=== PATIENT | male | born 1990 | race Two or more races ===

== ENCOUNTER 2024-09-15 10:37 | Emergency (ER) | payer MEDICAID ==
[~2024-09-15] VITALS: Ht 170.2 cm; Wt 110.0 kg
[2024-09-15 10:48] VITALS: TEMP 99
--- NOTE | 2024-09-15 11:20 | ED.PDOC ---
HPI Comments 33-year-old male presented to the [facility] complaining of extensive laceration to these left 4th finger he feels dated the ulnar side of his finger which is bleeding he does move his finger does have little sensation on the ulnar side Chief Complaint: Laceration Time Seen by MD: 10:54 Primary Care Provider: NONE Allergies: Coded Allergies: NO KNOWN ALLERGIES (Unverified , 01/17/15) Home Meds No Active Prescriptions or Reported Meds Mode of Arrival: Ambulatory Past Medical History PAST MEDICAL HISTORY: Denies Surgical History: Appendectomy, Denies all surgeries Family History Family History: Unknown Social History Smoker: Cigarettes Alcohol: Denies ETOH Use Drugs: Denies Drug Use Lives In: Home Constitutional: denies: chills, diaphoresis, fatigue, fever, malaise, sweats, weakness, others EENTM: denies: blurred vision, double vision, ear bleeding, ear discharge, ear drainage, ear pain, ear ringing, eye pain, eye redness, hearing loss, mouth pain, mouth swelling, nasal discharge, nose bleeding, nose congestion, nose pain, photophobia, tearing, throat pain, throat swelling, voice changes, others Respiratory: denies: cough, hemoptysis, orthopnea, SOB at rest, shortness of breath, SOB with excertion, stridor, wheezing, others Cardiovascular: denies: chest pain, dizzy spells, diaphoresis, Dyspnea on exertion, edema, irregular heart beat, left arm pain, lightheadedness, palpitations, PND, syncope, others Gastrointestinal: denies: abdomen distended, abdominal pain, blood streaked bowels, constipated, diarrhea, dysphagia, difficulty swallowing, hematemesis, melena, nausea, poor appetite, poor fluid intake, rectal bleeding, rectal pain, vomiting, others Genitourinary: denies: burning, dysuria, flank pain, frequency, hematuria, incontinence, penile discharge, penile sore, pain, testicle pain, testicle swelling, urgency, others Neurological: denies: dizziness, fainting, headache, left sided numbness, left sided weakness, numbness, paresthesia, pre-existing deficit, right sided numbness, right sided weakness, seizure, speech problems, tingling, tremors, weakness, others Musculoskeletal: denies: back pain, gout, joint pain, joint swelling, muscle pain, muscle stiffness, neck pain, others Integumetry: reports: laceration, others (Extensive laceration to his left 4th finger) Allergic/Immunocompromised: denies: Difficulty Healing, Frequent Infections, Hives, Itching, others Hematologic/Lymphatic: denies: anemia, blood clots, easy bleeding, easy bruising, swollen glands, others Endocrine: denies: excessive hunger, excessive sweating, excessive thirst, excessive urination, flushing, intolerance to cold, intolerance to heat, unexpl ained weight gain, unexplained weight loss, others Psychiatric: denies: anxiety, bipolar disorder, depression, hopeless, panic disorder, schizophrenia, sleepless, suicidal, others All Other Systems: Reviewed and Negative Physical Exam General Appearance: Mild Distress, Moderate Distress HEENT: Normal ENT Inspection, PERRL/EOMI Neck: Full Range of Motion, Non-Tender, Normal, Normal Inspection Respiratory: Chest Non-Tender, Lungs Clear, No Accessory Muscle Use, No Respiratory Distress, Normal Breath Sounds Cardiovascular: No Edema, No JVD, No Murmur, No Gallop, Normal Peripheral Pulses, Regular Rate/Rhythm Breast Exam: Deferred Gastrointestinal: No Organomegaly, Non Tender, No Pulsatile Mass, Normal Bowel Sounds, Soft Genitalia: Deferred Pelvic: Deferred Rectal: Deferred Extremities: Tender, Other (After hand 4th digit extensive laceration with profuse bleeding probably avulsion of the vascular system) Musculoskeletal : Location: Left Extremity Location: Finger 4, Hand Apperance: Limited ROM, Tenderness: Mild, Tenderness: Moderate, Other (Extended laceration 4th finger feel it) Neurologic: Alert, No Motor Deficits, Normal Affect, Normal Mood, Sensory Deficit Cerebellar Function: Normal Reflexes: Normal Skin: Dry, Lacerations, Warm, Other (Extensive bleeding deep wound probably involving the neurovascular system) Peripheral Pulses: 1+ carotid (R), 1+ carotid (L) Lymphatic: No Adenopathy Was a procedure done? Was a procedure done?: No Differential diagnosis Generic Laceration: Neurovascular Injury, Laceration, Avulsion X-Ray, Labs, Meds, VS Vital Signs Date Time Temp Pulse Resp B/P (MAP) Pulse Ox O2 Delivery O2 Flow Rate FiO2 09/15/24 10:48 99.0 90 16 154/95 (114) 99 99.0 X-Ray, Labs, Meds, VS Comment Course in the fast track patient has complex extensive laceration to his left 4th digit visit profusely bleeding and probably has a neurovascular injuries Patient will be referred back to the emergency department Departure 1 Departure Time of Disposition: 11:18 Impression: Primary Impression: Laceration of left hand with complication Qualified Codes: S61.412A - Laceration without foreign body of left hand, initial encounter Condition: Fair e-Prescriptions No Active Prescriptions or Reported Meds Critical Care Note Critical Care Time?: No Stability Stability form required: Yes Heart Score Heart Score: Heart Score Response (Comments) Value History N/A 0 EKG N/A 0 Age <45 0 Risk Factors No known risk factors 0 Troponin N/A 0 Total 0 I personally scribed for SHAN VELEZ MD ([email or web address]) on 09/15/24 at 11:32. Electronically submitted by Christen Sellers ([facility]). SHAN VELEZ MD Sep 15, 2024 11:20
[2024-09-15] MEDS: LIDOCAINE 1% (LOCAL ANESTH.) PF 5ml SDV ID ONE (11:48)
[2024-09-15 12:03] VITALS: PULSE 72; RESP 20; O2SAT 97
--- NOTE | 2024-09-15 12:05 | ED.PDOC ---
HPI Comments 33 y.o male presents to the ED for an evaluation of a left hand 3rd digit laceration. Patient reports cutting a hose with a wire knife and accidently slicing his finger. Patient presented with uncontrolled bleeding which was cleaned and wrapped in triage. Patient is able to move his hand and digit without any numbness or tingling sensation. No loss of sensation lost. Chief Complaint: Laceration Time Seen by MD: 12:00 Primary Care Provider: NONE Reviewed Notes: Nurses Notes, Medications, Allergies Allergies: Coded Allergies: NO KNOWN ALLERGIES (Unverified , 01/17/15) Home Meds Active Scripts Cephalexin (KEFLEX CAPSULE) 250 Mg Cp, 1 CAP PO QID, #28 CAP Prov:LUCILA MARTINEZ MD 09/15/24 Hydrocodone-Acetaminophen (Hydrocodone Bitartrate/AC 5-325 mg) 1 Tab Tab, 1 TAB PO Q8HP PRN for 7 Days, #21 TAB Prov:LUCILA MARTINEZ MD 09/15/24 Information Source: Patient Mode of Arrival: Ambulatory Severity: Moderate Severity of Laceration: Controlled Bleeding Complexity: Intermediate Timing: Hours Laceration Location: Digit #3 Mechanism: Knife Laceration Length (cm): 12 Depth of Injury: Skin Tender: Moderate Discharge: Bloody Associated Signs and Symptoms: Bleeding Past Medical History PAST MEDICAL HISTORY: Denies Surgical History: Appendectomy Family History Family History: Unknown Social History Smoker: Cigarettes Alcohol: Occasionally Drugs: Denies Drug Use Lives In: Home Constitutional: denies: chills, diaphoresis, fatigue, fever, malaise, sweats, weakness, others EENTM: denies: blurred vision, double vision, ear bleeding, ear discharge, ear drainage, ear pain, ear ringing, eye pain, eye redness, hearing loss, mouth pain, mouth swelling, nasal discharge, nose bleeding, nose congestion, nose pain, photophobia, tearing, throat pain, throat swelling, voice changes, others Respiratory: denies: cough, hemoptysis, orthopnea, SOB at rest, shortness of breath, SOB with excertion, stridor, wheezing, others Cardiovascular: denies: chest pain, dizzy spells, diaphoresis, Dyspnea on exertion, edema, irregular heart beat, left arm pain, lightheadedness, palpitations, PND, syncope, others Gastrointestinal: denies: abdomen distended, abdominal pain, blood streaked bowels, constipated, diarrhea, dysphagia, difficulty swallowing, hematemesis, melena, nausea, poor appetite, poor fluid intake, rectal bleeding, rectal pain, vomiting, others Genitourinary: denies: burning, dysuria, flank pain, frequency, hematuria, incontinence, penile discharge, penile sore, pain, testicle pain, testicle swelling, urgency, others Neurological: denies: dizziness, fainting, headache, left sided numbness, left sided weakness, numbness, paresthesia, pre-existing deficit, right sided numbness, right sided weakness, seizure, speech problems, tingling, tremors, weakness, others Musculoskeletal: denies: back pain, gout, joint pain, joint swelling, muscle pain, muscle stiffness, neck pain, others Integumetry: reports: laceration (left third digit ); denies: bruises, change in color, change in hair/nails, dryness, lesions, lumps, rash, wounds, others Allergic/Immunocompromised: denies: Difficulty Healing, Frequent Infections, Hives, Itching, others Hematologic/Lymphatic: denies: anemia, blood clots, easy bleeding, easy bruising, swollen glands, others Endocrine: denies: excessive hunger, excessive sweating, excessive thirst, excessive urination, flushing, intolerance to cold, intolerance to heat, unexplained weight gain, unexplained weight loss, others Psychiatric: denies: anxiety, bipolar disorder, depression, hopeless, panic disorder, schizophrenia, sleepless, suicidal, others All Other Systems: Reviewed and Negative Physical Exam General Appearance: Mild Distress HEENT: Normal ENT Inspection, Pharynx Normal, TMs Normal Neck: Full Range of Motion, Non-Tender, Normal, Normal Inspection Respiratory: Chest Non-Tender, Lungs Clear, No Accessory Muscle Use, No Respiratory Distress, Normal Breath Sounds Cardiovascular: No Edema, No JVD, No Murmur, No Gallop, Normal Peripheral Pulses, Regular Rate/Rhythm Breast Exam: Deferred Gastrointestinal: No Organomegaly, Non Tender, No Pulsatile Mass, Normal Bowel Sounds, Soft Genitalia: Deferred Pelvic: Deferred Rectal: Deferred Extremities: No calf tenderness, Normal capillary refill, Normal inspection, Normal range of motion, Non-tender, No pedal edema Musculoskeletal : Apperance: Normal Neurologic: Alert, paper colorer II-XII nml as Tested, No Motor Deficits, Normal Affect, Normal Mood, No Sensory Deficits Cerebellar Function: Normal Reflexes: Normal Skin: Dry, Lacerations (A total of 12 cm complex laceration to the 3rd digit with active bleeding), Normal Color, Warm Lymphatic: No Adenopathy Was a procedure done? Was a procedure done?: Yes Sedation Sedation?: No Laceration Repair : Location left hand, 3rd digit Length 12 cm Anesthetic: Lidocaine Laceration Repair Prep: Saline Laceration Repair Wound Comple: epidermis/dermis repair Laceration Repair: Number of sutures (30), Size (4-0 Ethilon), Nylon, Simple, Bacitracin, Non-adherent gauze Informed consent obtained: Yes Risks, benefits, and alternati: Yes Differential diagnosis Generic Laceration: Neurovascular Injury, Tendon Injury, Laceration, Avulsion X-Ray, Labs, Meds, VS Vital Signs Date Time Temp Pulse Resp B/P (MAP) Pulse Ox O2 Delivery O2 Flow Rate FiO2 09/15/24 12:03 72 20 97 Room Air* 0 21 09/15/24 11:59 82 17 143/88 (106) 95 09/15/24 10:48 99.0 90 16 154/95 (114) 99 99.0 Current Medications Medications (Trade) Dose Ordered Sig/Atvon Route Start Time Stop Time Status Last Admin Lidocaine HCl (Xylocaine 1%) 10 ml ONCE ONCE ID 09/15/24 11:30 09/15/24 11:31 DC 09/15/24 11:48 Bacitracin 1 applic ONCE ONCE TOP 09/15/24 11:30 09/15/24 11:31 DC 09/15/24 14:09 Diphtheria/ Tetanus/Acell Pertussis (Boostrix T-Dap) 0.5 ml ONCE ONCE IM 09/15/24 12:00 09/15/24 12:01 DC 09/15/24 13:05 Cefazolin Sodium 50 ml @ 100 mls/hr ONCE ONCE IV 09/15/24 12:00 09/15/24 12:29 DC 09/15/24 13:35 The patient tolerated the procedure well An IV Hep-Lock was established The patient was given Ancef 1 g IV piggyback The patient was also given a tetanus injection The patient was being discharged after laceration was sutured. The patient was given Troy for the pain in the emergency department's The patient was being placed on Keflex as an outpatient The patient was also given Troy for the pain The patient was to be evaluated at our fast track within two days We did explain to him where he would returned with the evaluated in 48 hours The patient was wound is dressed in sterile fashion Time of 1ST Reevaluation: 11:18 Reevaluation 1ST: Unchanged Patient Education/Counseling: Diagnosis, Treatment, Prognosis Family Education/Counseling: No Family Present Departure 1 Departure Time of Disposition: 11:18 Impression: Primary Impression: Laceration of left hand with complication Qualified Codes: S61.412A - Laceration without foreign body of left hand, initial encounter Disposition: HOME / SELF CARE / HOMELESS Condition: Fair e-Prescriptions Cephalexin (KEFLEX CAPSULE) 250 Mg Cp 1 CAP PO QID, #28 CAP Prov: LUCILA MARTINEZ MD 09/15/24 Hydrocodone-Acetaminophen (Hydrocodone Bitartrate/AC 5-325 mg) 1 Tab Tab 1 TAB PO Q8HP PRN for 7 Days, #21 TAB Prov: LUCILA MARTINEZ MD 09/15/24 Discharged With: Self Critical Care Note Critical Care Time?: No Stability Stability form required: No I personally scribed for LUCILA MARTINEZ MD ([email or web address]) on 09/15/24 at 12:05. Electronically submitted by Christen Sellers ([facility]). I personally scribed for LUCILA MARTINEZ MD ([email or web address]) on 09/15/24 at 13:01. E lectronically submitted by Christen Sellers ([facility]). LUCILA MARTINEZ MD Sep 15, 2024 12:05
[2024-09-15] MEDS: TETANUS-DIPTH-ACEL PERTUSSIS 0.5ML SYR Tdap IM ONE (13:05)
[2024-09-15] MEDS: ceFAZolin 1GM/50ML 50 ML IV ONE (13:35)
[2024-09-15] MEDS: BACITRACIN TOP OINT 1 UD PKG TOP ONE (14:09)
[2024-09-15] MEDS ORDERED: CEPH250C PO (14:31)
[2024-09-15] MEDS ORDERED: HYDR-4902 PO (14:31)
[2024-09-15] MEDS: HYDROcodone-ACET 10/325MG TAB PO ONE (14:40)
[2024-09-15 15:00] VITALS: BP 132/78; PULSE 89; RESP 18; O2SAT 96
== END 2024-09-15 15:01 | disposition home or self-care (01) ==
LOC: ER 10:37
DX: S61.213A Laceration without foreign body of left middle finger without damage to nail, initial encounter (principal); F17.210 Nicotine dependence, cigarettes, uncomplicated; Z23 Encounter for immunization; Z90.49 Acquired absence of other specified parts of digestive tract; W26.0XXA Contact with knife, initial encounter; Y93.89 Activity, other specified; Y92.89 Other specified places as the place of occurrence of the external cause; Y99.8 Other external cause status
CPT/HCPCS: 12004; 90471; 90715; 96365; 99284; J0690